=== PATIENT | male | born 1930 | race Caucasian/White ===

== ENCOUNTER → 2016-11-04 | Outpatient (CLI) | payer OTHER ==
[~2016-11-04] MED LIST: AMIODARONE HCL200 MG PO; AMOXICILLIN500 M2 PO; ASPI-COR81 M1 PO; ASPIR LOW81 MG PO; ATENOLOL25 MG PO; CALCIUM + VITA1 EAC2 PO; CARVEDILOL6.25 MG PO; CIPROFLOXACIN500 MG PO; CLOPIDOGREL75 MG PO; COLACE100 MG PO; DULCOLAX5 MG PO; FLOMAX0.4 MG PO; IMDUR30 MG PO; IRON90 MG PO; LOMOTIL 0.025 M1 TA1 PO; LOPRESSOR25 MG PO; LOVENOX30 MG/0.3 SC; MOBIC15 MG PO; NITROSTAT0.4 MG SL; PLAVIX75 MG PO; PRAVACHOL40 MG PO; PROSCAR5 MG PO; SONATA5 MG PO; TESSALON PERLE100 M1 PO; TESSALON PERLE100 MG PO; TRAMADOL HCL50 MG PO; TYLENOL500 MG PO; ULTRAM50 MG PO; VITAMIN D32000 UNI1 PO; XANAX0.25 MG PO; XANAX1 MG PO; XARELTO15 M1 PO; ZANTAC150 MG PO; ZITHROMAX250 MG PO; ZOFRAN ODT4 MG SL; ZOVIRAX200 MG PO; Zofran4 MG PO
[2016-11-04 09:49] LABS: ALBUMIN 3.4 gm/dl (3.1-4.5); BILIRUBIN, TOTAL 0.7 mg/dl (0.2-1.0); POTASSIUM 3.8 mmol/L (3.5-5.1); THYROXINE (T4) TOTAL 8.3 ug/dl (4.5-12.1); TOTAL PROTEIN 6.5 gm/dL (6.4-8.2)
== END | disposition home or self-care (01) ==
LOC: LAB 08:16
PROVIDERS: Internal Medicine
DX: R53.83 Other fatigue (principal)

== ENCOUNTER → 2017-01-06 | Outpatient (CLI) | payer OTHER | END | disposition home or self-care (01) | LOC: LAB 08:15 | DX: E21.0 Primary hyperparathyroidism (principal) ==

== ENCOUNTER 2017-01-28 17:25 | Emergency (ER) | payer OTHER ==
[~2017-01-28] VITALS: Wt 68.9 kg
[2017-01-28 18:13] LABS: HEMATOCRIT 36.2 % (42.0-52.0); HEMOGLOBIN 11.6 g/dl (14.0-18.0); MEAN CELL VOLUME 109.4 fl (80.0-94.0); MEAN PLATELET VOLUME 11.4 fl (9.6-12.3); PLATELET COUNT AUTOMATED 57 10*3/uL (130-400); RED BLOOD COUNT 3.31 10*6/uL (4.50-5.90); RED CELL DISTRI WIDTH 13.5 % (0-14.5); WHITE BLOOD COUNT 6.6 10*3/uL (4.8-10.8)
[2017-01-28 18:24] LABS: PROTHROMBIN TIME 10.5 SECONDS (9.0-12.4)
[2017-01-28 18:32] LABS: BILIRUBIN, TOTAL 0.3 mg/dl (0.2-1.0); C-REACTIVE PROTEIN 2.17 MG/DL (0-0.3); MAGNESIUM 2.3 mg/dL (1.5-2.1); POTASSIUM 4.2 mmol/L (3.5-5.1); TOTAL PROTEIN 5.8 gm/dL (6.4-8.2)
[2017-01-28 18:33] LABS: CKMB 2.4 ng/ml (0.5-3.6); TROPONIN I 0.019 ng/ml (<0.045)
[2017-01-28 18:48] LABS: BASOPHIL # 0.1 10*3/uL (0-0.1); BASOPHILS 1 % (0-1); LYMPHOCYTE # 1.4 10*3/uL (1.3-4.4); MONOCYTE # 0.1 10*3/uL (0.1-1.0); NEUTROPHILS 76 % (47-73); TOTAL CELLS COUNTED 100 #CELLS
[2017-01-28 18:50] LABS: PLATELET SUFFICIENCY LOW (NORMAL)
[2017-01-28] MEDS ORDERED: AUGMENTIN 500 M1 TAB PO (19:42)
== END 2017-01-28 20:14 | disposition home or self-care (01) ==
LOC: ED 17:25
PROVIDERS: Student in an Organized Health Care Education/Training Program
DX: J20.9 Acute bronchitis, unspecified (principal); I48.91 Unspecified atrial fibrillation; I25.10 Atherosclerotic heart disease of native coronary artery without angina pectoris; E78.5 Hyperlipidemia, unspecified; I10 Essential (primary) hypertension; Z79.82 Long term (current) use of aspirin; Z88.8 Allergy status to other drugs, medicaments and biological substances

== ENCOUNTER → 2017-02-07 | Outpatient (CLI) | payer OTHER ==
[~2017-02-07] MED LIST changes: +AUGMENTIN 500 M1 TAB PO
== END | disposition home or self-care (01) ==
LOC: LAB 08:12
DX: E03.9 Hypothyroidism, unspecified (principal)

== ENCOUNTER → 2017-03-19 | Outpatient (CLI) | payer OTHER ==
[2017-03-19 09:23] LABS: BASO % 0.1 % (0.0-1.0); HEMATOCRIT 36.9 % (42.0-52.0); HEMOGLOBIN 11.8 g/dl (14.0-18.0); LYMPH # 1.7 10*3/uL (1.3-4.4); LYMPH % 19.4 % (27.0-41.0); MEAN CELL VOLUME 105.7 fl (80.0-94.0); MEAN CORPUSCULAR HGB 33.8 pg (27.0-31.0); MEAN PLATELET VOLUME 11.8 fl (9.6-12.3); MONO # 0.6 10*3/uL (0.1-1.0); MONO % 6.7 % (3.0-9.0); NEUT # 6.4 10*3/uL (2.3-7.9); NEUT % 73.6 % (47.0-73.0); PLATELET COUNT AUTOMATED 114 10*3/uL (130-400); RED BLOOD COUNT 3.49 10*6/uL (4.50-5.90); RED CELL DISTRI WIDTH 13.2 % (0-14.5); WHITE BLOOD COUNT 8.7 10*3/uL (4.8-10.8)
[2017-03-19 09:57] LABS: ALBUMIN 3.4 gm/dl (3.1-4.5); BILIRUBIN, TOTAL 0.5 mg/dl (0.2-1.0); FREE T4 0.88 ng/dl (0.76-1.46); TOTAL PROTEIN 6.4 gm/dL (6.4-8.2)
[2017-03-19 10:08] LABS: THYROID STIM HORMONE (HS) 10.1 uIU/ml (0.358-4.75)
== END | disposition home or self-care (01) ==
LOC: LAB 08:08
PROVIDERS: Internal Medicine
DX: I10 Essential (primary) hypertension (principal); E78.5 Hyperlipidemia, unspecified; R53.83 Other fatigue

== ENCOUNTER → 2017-04-23 | Outpatient (CLI) | payer OTHER | END | disposition home or self-care (01) | LOC: US 04-18 11:42 | DX: M79.89 Other specified soft tissue disorders (principal) ==

== ENCOUNTER 2017-05-22 21:28 | Inpatient (IN) | payer OTHER ==
[~2017-05-22] VITALS: Ht 177.8 cm; Wt 65.8 kg
[2017-05-22 21:36] VITALS: BP 107/68
[2017-05-22 21:57] LABS: BASO % 0.1 % (0.0-1.0); HEMATOCRIT 38.7 % (42.0-52.0); HEMOGLOBIN 12.5 g/dl (14.0-18.0); LYMPH # 0.5 10*3/uL (1.3-4.4); LYMPH % 5.4 % (27.0-41.0); MEAN CELL VOLUME 101.6 fl (80.0-94.0); MEAN CORPUSCULAR HGB 32.8 pg (27.0-31.0); MEAN CORPUSCULAR HGB CONC 32.3 g/dl (33.0-37.0); MEAN PLATELET VOLUME 11.5 fl (9.6-12.3); MONO # 0.8 10*3/uL (0.1-1.0); MONO % 8.2 % (3.0-9.0); PLATELET COUNT AUTOMATED 93 10*3/uL (130-400); RED BLOOD COUNT 3.81 10*6/uL (4.50-5.90); RED CELL DISTRI WIDTH 13.3 % (0-14.5); WHITE BLOOD COUNT 9.3 10*3/uL (4.8-10.8)
[2017-05-22 22:14] LABS: ALBUMIN 3.4 gm/dl (3.1-4.5); BILIRUBIN, TOTAL 0.6 mg/dl (0.2-1.0); C-REACTIVE PROTEIN 2.4 MG/DL (0-0.3); MAGNESIUM 2.2 mg/dL (1.5-2.1); POTASSIUM 4.3 mmol/L (3.5-5.1); TOTAL PROTEIN 6.3 gm/dL (6.4-8.2)
[2017-05-22 22:16] LABS: TROPONIN I 0.03 ng/ml (<0.045)
[2017-05-22 23:21] LABS: BILIRUBIN NEGATIVE (NEGATIVE); BLOOD NEGATIVE (NEGATIVE); CLARITY SL CLOUDY (CLEAR); COLOR YELLOW (YELLOW); GLUCOSE NEGATIVE (NEGATIVE); KETONE TRACE (NEGATIVE); LEUKO ESTERASE NEGATIVE (NEGATIVE); NITRITE NEGATIVE (NEGATIVE); PROTEIN TRACE (NEGATIVE); SPECIFIC GRAVITY 1.015 (1.005-1.030); UROBILINOGEN 0.2 E.U./dl (0.2-1.0)
[2017-05-22 23:28] LABS: BACTERIA 2+; EPITHELIAL CELLS 0-2; MUCOUS TRACE; RBC 0-2 rbc/hpf (0-2); URINE REFLEX COMMENT YES (NO)
[2017-05-23 00:15] VITALS: BP 151/68
[2017-05-23] MEDS ORDERED: PREDNISONE10 MG PO (00:28)
[2017-05-23] MEDS ORDERED: Rocaltrol0.25 MCG PO (00:29)
[2017-05-23] MEDS ORDERED: LEVOTHYROXINE50 MCG PO (00:29)
[2017-05-23 06:10] LABS: HEMATOCRIT 36.1 % (42.0-52.0); HEMOGLOBIN 11.8 g/dl (14.0-18.0); LYMPH # 0.8 10*3/uL (1.3-4.4); LYMPH % 7.5 % (27.0-41.0); MEAN CELL VOLUME 99.4 fl (80.0-94.0); MEAN CORPUSCULAR HGB 32.5 pg (27.0-31.0); MEAN CORPUSCULAR HGB CONC 32.7 g/dl (33.0-37.0); MEAN PLATELET VOLUME 12.1 fl (9.6-12.3); MONO # 0.7 10*3/uL (0.1-1.0); MONO % 7.1 % (3.0-9.0); NEUT # 8.6 10*3/uL (2.3-7.9); PLATELET COUNT AUTOMATED 90 10*3/uL (130-400); RED BLOOD COUNT 3.63 10*6/uL (4.50-5.90); RED CELL DISTRI WIDTH 13.4 % (0-14.5); WHITE BLOOD COUNT 10.2 10*3/uL (4.8-10.8)
[2017-05-23 06:41] LABS: INTERNATIONAL NORM RATIO 1.1 (2.0-3.5); PROTHROMBIN TIME 11.5 SECONDS (9.0-12.4)
[2017-05-23 06:42] LABS: MAGNESIUM 2.3 mg/dL (1.5-2.1); PHOSPHOROUS 2.2 mg/dL (2.5-4.9); POTASSIUM 3.8 mmol/L (3.5-5.1)
[2017-05-23 06:51] LABS: FREE T4 0.89 ng/dl (0.76-1.46)
[2017-05-23 06:56] LABS: THYROID STIM HORMONE (HS) 6.67 uIU/ml (0.358-4.75)
[2017-05-23 08:00] VITALS: BP 155/71
[2017-05-23] MEDS ORDERED: NEURONTIN100 MG PO (10:47)
[2017-05-23 12:00] VITALS: BP 140/67
[2017-05-23 13:10] LABS: VITAMIN D, 25-HYDROXY 36.6 ng/mL (30-100)
[2017-05-23 13:11] LABS: FOLIC ACID 23.58 ng/mL (>5.38)
[2017-05-23 16:00] VITALS: BP 119/62
[2017-05-23 20:00] VITALS: BP 128/96
[2017-05-24] VITALS: BP 173/70
[2017-05-24 05:52] LABS: BASO % 0.1 % (0.0-1.0); HEMATOCRIT 31.2 % (42.0-52.0); HEMOGLOBIN 9.8 g/dl (14.0-18.0); LYMPH % 14.8 % (27.0-41.0); MEAN CORPUSCULAR HGB CONC 31.4 g/dl (33.0-37.0); MEAN PLATELET VOLUME 12.5 fl (9.6-12.3); MONO # 0.5 10*3/uL (0.1-1.0); MONO % 7.5 % (3.0-9.0); NEUT # 5.3 10*3/uL (2.3-7.9); NEUT % 77.5 % (47.0-73.0); PLATELET COUNT AUTOMATED 76 10*3/uL (130-400); RED BLOOD COUNT 3.06 10*6/uL (4.50-5.90); RED CELL DISTRI WIDTH 13.7 % (0-14.5); WHITE BLOOD COUNT 6.8 10*3/uL (4.8-10.8)
[2017-05-24 06:25] LABS: ALBUMIN 2.7 gm/dl (3.1-4.5); POTASSIUM 3.3 mmol/L (3.5-5.1)
[2017-05-24 06:29] LABS: BILIRUBIN, TOTAL 0.4 mg/dl (0.2-1.0)
[2017-05-24 08:00] VITALS: BP 167/71
[2017-05-24] MEDS ORDERED: FEOSOL325 MG PO (10:37)
[2017-05-24 12:00] VITALS: BP 117/80
[2017-05-24 16:00] VITALS: BP 168/70
[2017-05-24 20:00] VITALS: BP 164/77
[2017-05-25] VITALS: BP 114/61
[2017-05-25 07:09] LABS: ALBUMIN 2.7 gm/dl (3.1-4.5); BILIRUBIN, TOTAL 0.6 mg/dl (0.2-1.0); POTASSIUM 3.5 mmol/L (3.5-5.1); TOTAL PROTEIN 5.3 gm/dL (6.4-8.2)
[2017-05-25 08:00] VITALS: BP 156/68
[2017-05-25 10:15] LABS: HEMOGLOBIN 9.7 g/dl (14.0-18.0); MEAN CORPUSCULAR HGB 31.9 pg (27.0-31.0); MEAN CORPUSCULAR HGB CONC 31.3 g/dl (33.0-37.0); MEAN PLATELET VOLUME 11.5 fl (9.6-12.3); PLATELET COUNT AUTOMATED 68 10*3/uL (130-400); RED BLOOD COUNT 3.04 10*6/uL (4.50-5.90); RED CELL DISTRI WIDTH 13.7 % (0-14.5); WHITE BLOOD COUNT 9.6 10*3/uL (4.8-10.8)
[2017-05-25 10:27] LABS: POTASSIUM 3.8 mmol/L (3.5-5.1)
[2017-05-25 10:42] LABS: LYMPHOCYTE # 0.9 10*3/uL (1.3-4.4); MONOCYTE # 0.4 10*3/uL (0.1-1.0); NEUTROPHIL # 8.4 10*3/uL (2.3-7.9); NEUTROPHILS 87 % (47-73); PLATELET SUFFICIENCY LOW (NORMAL); POLYCHROMASIA SLIGHT; TOTAL CELLS COUNTED 100 #CELLS
[2017-05-25 16:00] VITALS: BP 114/58
[2017-05-25 20:00] VITALS: BP 138/57
[2017-05-26] VITALS: BP 137/65
[2017-05-26 05:58] LABS: ALBUMIN 2.4 gm/dl (3.1-4.5); POTASSIUM 3.6 mmol/L (3.5-5.1)
[2017-05-26 06:01] LABS: BILIRUBIN, TOTAL 0.4 mg/dl (0.2-1.0); TOTAL PROTEIN 4.7 gm/dL (6.4-8.2)
[2017-05-26 06:18] LABS: HEMATOCRIT 30.2 % (42.0-52.0); HEMOGLOBIN 9.6 g/dl (14.0-18.0); MEAN CORPUSCULAR HGB 32.4 pg (27.0-31.0); MEAN CORPUSCULAR HGB CONC 31.8 g/dl (33.0-37.0); MEAN PLATELET VOLUME 12.9 fl (9.6-12.3); PLATELET COUNT AUTOMATED 61 10*3/uL (130-400); RED BLOOD COUNT 2.96 10*6/uL (4.50-5.90); RED CELL DISTRI WIDTH 13.7 % (0-14.5); WHITE BLOOD COUNT 7.8 10*3/uL (4.8-10.8)
[2017-05-26 07:13] LABS: LYMPHOCYTE # 0.5 10*3/uL (1.3-4.4); MONOCYTE # 0.5 10*3/uL (0.1-1.0); NEUTROPHIL # 6.9 10*3/uL (2.3-7.9); NEUTROPHILS 88 % (47-73); OVALOCYTES FEW; PLATELET SUFFICIENCY LOW (NORMAL); TOTAL CELLS COUNTED 100 #CELLS
[2017-05-26 08:00] VITALS: BP 167/71
[2017-05-26] MEDS ORDERED: LEVAQUIN750 M1 PO (14:17)
[2017-05-26 16:00] VITALS: BP 136/66
== END 2017-05-26 17:06 | disposition home health service (06) | DRG 371 ==
LOC: ED 21:28 → EDHOLD 23:42 → 4E 23:42
PROVIDERS: Family Medicine; Internal Medicine; Student in an Organized Health Care Education/Training Program
DX: A04.5 Campylobacter enteritis (principal); E43 Unspecified severe protein-calorie malnutrition; D69.6 Thrombocytopenia, unspecified; C90.00 Multiple myeloma not having achieved remission; E87.8 Other disorders of electrolyte and fluid balance, not elsewhere classified; E83.41 Hypermagnesemia; E83.39 Other disorders of phosphorus metabolism; I48.2 Chronic atrial fibrillation; E86.0 Dehydration; I25.10 Atherosclerotic heart disease of native coronary artery without angina pectoris; N18.3 Chronic kidney disease, stage 3 (moderate); I12.9 Hypertensive chronic kidney disease with stage 1 through stage 4 chronic kidney disease, or unspecified chronic kidney disease; D53.9 Nutritional anemia, unspecified; E78.5 Hyperlipidemia, unspecified; Z85.46 Personal history of malignant neoplasm of prostate; Z68.20 Body mass index [BMI] 20.0-20.9, adult; Z88.8 Allergy status to other drugs, medicaments and biological substances; Z79.02 Long term (current) use of antithrombotics/antiplatelets; Z79.82 Long term (current) use of aspirin; Z79.899 Other long term (current) drug therapy; Z87.81 Personal history of (healed) traumatic fracture; Z82.69 Family history of other diseases of the musculoskeletal system and connective tissue; Z80.8 Family history of malignant neoplasm of other organs or systems; Z82.49 Family history of ischemic heart disease and other diseases of the circulatory system

== ENCOUNTER → 2017-06-05 | Outpatient (CLI) | payer OTHER ==
[~2017-06-05] MED LIST changes: +FEOSOL325 MG PO; +LEVAQUIN750 M1 PO; +LEVOTHYROXINE50 MCG PO; +NEURONTIN100 MG PO; +PREDNISONE10 MG PO; +Rocaltrol0.25 MCG PO
[2017-06-05 10:03] LABS: THYROXINE (T4) TOTAL 8.2 ug/dl (4.5-12.1)
[2017-06-05 10:08] LABS: THYROID STIM HORMONE (HS) 33.7 uIU/ml (0.358-4.75)
[2017-06-06 15:06] LABS: ALBUMIN, URINE RANDOM 33.4 % (.); ALPHA-1-GLOBULIN, URINE 5.6 % (.); ALPHA-2-GLOBULIN, URINE 17.4 % (.); GAMMA GLOBULIN, URINE 16.7 % (.); M-SPIKE % Not Observed % (Not Observed); PROTEIN,TOTAL - URINE RANDOM 8.5 mg/dL (Not Estab.)
== END | disposition home or self-care (01) ==
LOC: LAB 09:06
PROVIDERS: Internal Medicine; Internal Medicine Hematology & Oncology
DX: C90.00 Multiple myeloma not having achieved remission (principal); E78.5 Hyperlipidemia, unspecified; R53.83 Other fatigue

== ENCOUNTER → 2017-06-12 | Outpatient (CLI) | payer OTHER ==
[2017-06-12 12:03] LABS: BASO % 0.1 % (0.0-1.0); EOS # 0.1 10*3/uL (0.0-0.4); EOS % 1.4 % (1.0-4.0); HEMATOCRIT 38.2 % (42.0-52.0); HEMOGLOBIN 11.9 g/dl (14.0-18.0); LYMPH # 2.3 10*3/uL (1.3-4.4); LYMPH % 32.7 % (27.0-41.0); MEAN CELL VOLUME 101.9 fl (80.0-94.0); MEAN CORPUSCULAR HGB 31.7 pg (27.0-31.0); MEAN CORPUSCULAR HGB CONC 31.2 g/dl (33.0-37.0); MEAN PLATELET VOLUME 11.7 fl (9.6-12.3); MONO # 1.2 10*3/uL (0.1-1.0); MONO % 16.2 % (3.0-9.0); NEUT # 3.5 10*3/uL (2.3-7.9); NEUT % 49.3 % (47.0-73.0); PLATELET COUNT AUTOMATED 114 10*3/uL (130-400); RED BLOOD COUNT 3.75 10*6/uL (4.50-5.90); RED CELL DISTRI WIDTH 14.4 % (0-14.5); WHITE BLOOD COUNT 7.1 10*3/uL (4.8-10.8)
[2017-06-12 12:35] LABS: CREATININE 2.02 mg/dL (0.70-1.30)
== END | disposition home or self-care (01) ==
LOC: LAB 11:13
PROVIDERS: Internal Medicine Hematology & Oncology
DX: C90.00 Multiple myeloma not having achieved remission (principal)

== ENCOUNTER → 2017-09-01 | Outpatient (CLI) | payer OTHER ==
[2017-09-01 10:27] LABS: BASO % 0.2 % (0.0-1.0); EOS # 0.1 10*3/uL (0.0-0.4); HEMATOCRIT 40.8 % (42.0-52.0); HEMOGLOBIN 13.3 g/dl (14.0-18.0); LYMPH # 1.5 10*3/uL (1.3-4.4); LYMPH % 26.6 % (27.0-41.0); MEAN CELL VOLUME 98.6 fl (80.0-94.0); MEAN CORPUSCULAR HGB 32.1 pg (27.0-31.0); MEAN CORPUSCULAR HGB CONC 32.6 g/dl (33.0-37.0); MEAN PLATELET VOLUME 11.3 fl (9.6-12.3); MONO # 0.7 10*3/uL (0.1-1.0); MONO % 11.9 % (3.0-9.0); NEUT # 3.3 10*3/uL (2.3-7.9); NEUT % 58.9 % (47.0-73.0); PLATELET COUNT AUTOMATED 116 10*3/uL (130-400); RED BLOOD COUNT 4.14 10*6/uL (4.50-5.90); RED CELL DISTRI WIDTH 14.3 % (0-14.5); WHITE BLOOD COUNT 5.6 10*3/uL (4.8-10.8)
[2017-09-01 10:53] LABS: POTASSIUM 3.5 mmol/L (3.5-5.1); TOTAL PROTEIN 6.6 gm/dL (6.4-8.2); URIC ACID 3.8 mg/dL (3.5-7.2)
[2017-09-01 11:56] LABS: PTH INTACT 110.7 pg/mL (14.0-72.0)
[2017-09-01 13:40] LABS: VITAMIN D, 25-HYDROXY 34.7 ng/mL (30-100)
[2017-09-02 07:07] LABS: TOTAL PROTEIN, SERUM 5.6 g/dL (6.0-8.5)
[2017-09-02 10:10] LABS: CREATININE,URINE 127.9 mg/dL (Not Estab.)
[2017-09-02 14:12] LABS: FREE KAPPA LIGHT CHAINS 18.3 mg/L (3.3-19.4); FREE LAMBDA LIGHT CHAINS 19.3 mg/L (5.7-26.3); KAPPA/LAMBDA RATIO 0.95 (0.26-1.65)
[2017-09-02 15:07] LABS: A/G RATIO 1.5 (0.7-1.7); ALBUMIN 3.4 g/dL (2.9-4.4); ALBUMIN, URINE RANDOM 25.9 % (.); ALPHA-1-GLOBULIN 0.2 g/dL (0.0-0.4); ALPHA-2-GLOBULIN 0.7 g/dL (0.4-1.0); BETA GLOBULIN 0.7 g/dL (0.7-1.3); GAMMA GLOBULIN 0.6 g/dL (0.4-1.8); GAMMA GLOBULIN, URINE 14.3 % (.); GLOBULIN, TOTAL 2.2 g/dL (2.2-3.9); M-SPIKE 0.2 g/dL (Not Observed); M-SPIKE % Not Observed % (Not Observed); PROTEIN,TOTAL - URINE RANDOM 40.8 mg/dL (Not Estab.)
[2017-09-02 16:09] LABS: BETA-2 MICROGLOBULIN 010181 4.2 mg/L (0.6-2.4)
== END | disposition home or self-care (01) ==
LOC: LAB 09:51
PROVIDERS: Internal Medicine Hematology & Oncology
DX: I13.0 Hypertensive heart and chronic kidney disease with heart failure and stage 1 through stage 4 chronic kidney disease, or unspecified chronic kidney disease (principal); N18.3 Chronic kidney disease, stage 3 (moderate); I50.9 Heart failure, unspecified; C90.00 Multiple myeloma not having achieved remission; D63.1 Anemia in chronic kidney disease; E55.9 Vitamin D deficiency, unspecified; N25.81 Secondary hyperparathyroidism of renal origin; R60.9 Edema, unspecified

== ENCOUNTER 2017-09-06 21:01 | Inpatient (IN) | payer OTHER ==
[2017-09-06] VITALS (8 sets, daily range): BP systolic 151–218; BP diastolic 63–802
[~2017-09-06] VITALS: Ht 177.8 cm; Wt 65.5 kg
--- NOTE | ~2017-09-06 | EKG ---
[place], [place] ELECTROCARDIOGRAM REPORT NAME: JOHANNA RAZA UNIT #: [id number] ROOM: [id number] DOCTOR: MAYUR MORRIS MD BIRTHDATE: [birth year] DOS: 09/06/2017 TIME: 2126 hours. 1. Underlying rhythm appears to be normal sinus at 52 beats per minute, i.e. sinus bradycardia. 2. Low voltage in precordial leads. 3. 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 4. An abnormal ECG. 5. No previous tracing is available for comparison. MAYUR MORRIS MD CM:EKGRPT:ELECTROCARDIOGRAM REPORT [id number] MAYUR MORRIS MD
[2017-09-06 21:38] LABS: BASO % 0.1 % (0.0-1.0); EOS # 0.2 10*3/uL (0.0-0.4); EOS % 2.2 % (1.0-4.0); HEMATOCRIT 37.8 % (42.0-52.0); HEMOGLOBIN 12.2 g/dl (14.0-18.0); LYMPH # 2.4 10*3/uL (1.3-4.4); LYMPH % 35.4 % (27.0-41.0); MEAN CELL VOLUME 100.3 fl (80.0-94.0); MEAN CORPUSCULAR HGB 32.4 pg (27.0-31.0); MEAN CORPUSCULAR HGB CONC 32.3 g/dl (33.0-37.0); MONO # 0.9 10*3/uL (0.1-1.0); MONO % 12.7 % (3.0-9.0); NEUT # 3.4 10*3/uL (2.3-7.9); NEUT % 49.5 % (47.0-73.0); PLATELET COUNT AUTOMATED 95 10*3/uL (130-400); RED BLOOD COUNT 3.77 10*6/uL (4.50-5.90); RED CELL DISTRI WIDTH 14.6 % (0-14.5); WHITE BLOOD COUNT 6.8 10*3/uL (4.8-10.8)
[2017-09-06 21:48] LABS: ACT PARTIAL THROMBO TIME 27.6 SECONDS (20.8-31.5)
[2017-09-06 21:54] LABS: ALBUMIN 3.5 gm/dl (3.1-4.5); ALKALINE PHOSPHATASE 95 U/L (45-117); BUN 32 mg/dl (7-24); CHLORIDE 112 mmol/L (98-107); POTASSIUM 4.2 mmol/L (3.5-5.1); SGOT/AST 14 IU/L (3-35); SGPT/ALT 14 U/L (12-78); SODIUM 146 mmol/L (136-145); TOTAL PROTEIN 6.2 gm/dL (6.4-8.2); TROPONIN I < 0.015 ng/ml (<0.045)
[2017-09-07 01:25] VITALS: BP 154/70
[2017-09-07 03:22] LABS: BASO % 0.3 % (0.0-1.0); EOS # 0.1 10*3/uL (0.0-0.4); EOS % 1.4 % (1.0-4.0); HEMATOCRIT 37.4 % (42.0-52.0); HEMOGLOBIN 12.1 g/dl (14.0-18.0); LYMPH # 2.5 10*3/uL (1.3-4.4); LYMPH % 31.6 % (27.0-41.0); MEAN CELL VOLUME 100.5 fl (80.0-94.0); MEAN CORPUSCULAR HGB 32.5 pg (27.0-31.0); MEAN CORPUSCULAR HGB CONC 32.4 g/dl (33.0-37.0); MEAN PLATELET VOLUME 11.5 fl (9.6-12.3); MONO # 0.9 10*3/uL (0.1-1.0); NEUT # 4.3 10*3/uL (2.3-7.9); NEUT % 55.6 % (47.0-73.0); PLATELET COUNT AUTOMATED 99 10*3/uL (130-400); RED BLOOD COUNT 3.72 10*6/uL (4.50-5.90); RED CELL DISTRI WIDTH 14.6 % (0-14.5); WHITE BLOOD COUNT 7.8 10*3/uL (4.8-10.8)
[2017-09-07 03:34] LABS: ACT PARTIAL THROMBO TIME 28.7 SECONDS (20.8-31.5)
[2017-09-07 03:38] LABS: ALBUMIN 3.3 gm/dl (3.1-4.5); CREATININE 1.91 mg/dL (0.70-1.30); FREE T4 1.17 ng/dl (0.76-1.46); PHOSPHOROUS 2.3 mg/dL (2.5-4.9); POTASSIUM 3.5 mmol/L (3.5-5.1); TOTAL PROTEIN 5.7 gm/dL (6.4-8.2)
[2017-09-07 03:47] LABS: THYROID STIM HORMONE (HS) 7.96 uIU/ml (0.358-4.75)
[2017-09-07 07:18] LABS: VITAMIN D, 25-HYDROXY 36.9 ng/mL (30-100)
[2017-09-07 08:00] VITALS: BP 161/80
[2017-09-07 11:59] VITALS: BP 126/62
[2017-09-07 16:00] VITALS: BP 134/67
[2017-09-07 20:00] VITALS: BP 134/67
[2017-09-08] VITALS: BP 151/77
[2017-09-08 04:00] VITALS: BP 146/74
[2017-09-08 06:01] LABS: BASO % 0.5 % (0.0-1.0); EOS # 0.1 10*3/uL (0.0-0.4); EOS % 2.1 % (1.0-4.0); HEMATOCRIT 37.1 % (42.0-52.0); HEMOGLOBIN 11.9 g/dl (14.0-18.0); LYMPH % 33.2 % (27.0-41.0); MEAN CELL VOLUME 98.7 fl (80.0-94.0); MEAN CORPUSCULAR HGB 31.6 pg (27.0-31.0); MEAN CORPUSCULAR HGB CONC 32.1 g/dl (33.0-37.0); MEAN PLATELET VOLUME 12.1 fl (9.6-12.3); MONO # 0.7 10*3/uL (0.1-1.0); MONO % 11.1 % (3.0-9.0); NEUT # 3.3 10*3/uL (2.3-7.9); NEUT % 52.9 % (47.0-73.0); PLATELET COUNT AUTOMATED 96 10*3/uL (130-400); RED BLOOD COUNT 3.76 10*6/uL (4.50-5.90); RED CELL DISTRI WIDTH 14.6 % (0-14.5); WHITE BLOOD COUNT 6.1 10*3/uL (4.8-10.8)
[2017-09-08 06:05] LABS: POTASSIUM 3.6 mmol/L (3.5-5.1)
[2017-09-08 06:06] LABS: CREATININE 1.66 mg/dL (0.70-1.30); PHOSPHOROUS 2.4 mg/dL (2.5-4.9)
[2017-09-08 08:00] VITALS: BP 176/80
[2017-09-08] MEDS ORDERED: LOPRESSOR25 MG PO (09:54)
[2017-09-08 12:00] VITALS: BP 130/80
== END 2017-09-08 13:18 | disposition home health service (06) | DRG 304 ==
LOC: ED 21:01 → EDHOLD 22:07 → 4E 22:15
PROVIDERS: Hospitalist; Internal Medicine Nephrology; Student in an Organized Health Care Education/Training Program; ADMIT Internal Medicine
DX: I16.0 Hypertensive urgency (principal); N17.0 Acute kidney failure with tubular necrosis; E87.0 Hyperosmolality and hypernatremia; D69.6 Thrombocytopenia, unspecified; E87.8 Other disorders of electrolyte and fluid balance, not elsewhere classified; C90.00 Multiple myeloma not having achieved remission; N18.3 Chronic kidney disease, stage 3 (moderate); M87.812 Other osteonecrosis, left shoulder; I48.0 Paroxysmal atrial fibrillation; D53.9 Nutritional anemia, unspecified; D72.821 Monocytosis (symptomatic); E78.5 Hyperlipidemia, unspecified; I25.10 Atherosclerotic heart disease of native coronary artery without angina pectoris; I12.9 Hypertensive chronic kidney disease with stage 1 through stage 4 chronic kidney disease, or unspecified chronic kidney disease; Z87.19 Personal history of other diseases of the digestive system; Z91.14 Patient's other noncompliance with medication regimen; Z87.891 Personal history of nicotine dependence; Z82.49 Family history of ischemic heart disease and other diseases of the circulatory system; Z88.8 Allergy status to other drugs, medicaments and biological substances; Z79.82 Long term (current) use of aspirin; Z79.899 Other long term (current) drug therapy; Z85.46 Personal history of malignant neoplasm of prostate

== ENCOUNTER → 2017-12-22 | Outpatient (CLI) | payer OTHER ==
[2017-12-22 13:15] LABS: BASO % 0.3 % (0.0-1.0); EOS # 0.1 10*3/uL (0.0-0.4); EOS % 2.1 % (1.0-4.0); HEMATOCRIT 39.4 % (42.0-52.0); HEMOGLOBIN 12.8 g/dl (14.0-18.0); LYMPH # 1.7 10*3/uL (1.3-4.4); MEAN CORPUSCULAR HGB 32.5 pg (27.0-31.0); MEAN CORPUSCULAR HGB CONC 32.5 g/dl (33.0-37.0); MEAN PLATELET VOLUME 11.4 fl (9.6-12.3); MONO # 0.9 10*3/uL (0.1-1.0); NEUT # 3.9 10*3/uL (2.3-7.9); NEUT % 58.4 % (47.0-73.0); PLATELET COUNT AUTOMATED 111 10*3/uL (130-400); RED BLOOD COUNT 3.94 10*6/uL (4.50-5.90); RED CELL DISTRI WIDTH 13.7 % (0-14.5); WHITE BLOOD COUNT 6.6 10*3/uL (4.8-10.8)
[2017-12-22 13:44] LABS: CREATININE 2.09 mg/dL (0.70-1.30); TOTAL PROTEIN 6.3 gm/dL (6.4-8.2)
[2017-12-23 06:07] LABS: TOTAL PROTEIN, SERUM 5.6 g/dL (6.0-8.5)
[2017-12-23 07:08] LABS: IMMUNOGLOBULIN G, QNT 526 mg/dL (700-1600); IMMUNOGLOBULIN M, QNT 49 mg/dL (15-143)
[2017-12-23 15:04] LABS: A/G RATIO 1.7 (0.7-1.7); ALBUMIN 3.5 g/dL (2.9-4.4); ALPHA-1-GLOBULIN 0.2 g/dL (0.0-0.4); ALPHA-2-GLOBULIN 0.7 g/dL (0.4-1.0); BETA GLOBULIN 0.7 g/dL (0.7-1.3); GAMMA GLOBULIN 0.6 g/dL (0.4-1.8); GLOBULIN, TOTAL 2.1 g/dL (2.2-3.9); M-SPIKE Comment: g/dL (Not Observed)
[2017-12-23 15:04] LABS: ALPHA-1-GLOBULIN, URINE 9.1 % (.); BETA GLOBULIN, URINE 24.7 % (.); GAMMA GLOBULIN, URINE 19.1 % (.); M-SPIKE, % Comment: % (Not Observed); PROTEIN,TOTAL - URINE RANDOM 28.7 mg/dL (Not Estab.)
[2017-12-23 17:04] LABS: FREE KAPPA LIGHT CHAINS 15.3 mg/L (3.3-19.4); FREE LAMBDA LIGHT CHAINS 21.9 mg/L (5.7-26.3)
[2017-12-24 06:09] LABS: BETA-2 MICROGLOBULIN 010181 4.1 mg/L (0.6-2.4)
== END | disposition home or self-care (01) ==
LOC: LAB 12:43
PROVIDERS: Internal Medicine Hematology & Oncology
DX: C90.00 Multiple myeloma not having achieved remission (principal)